=== PATIENT | male | born 1970 | race Caucasian/White ===

== ENCOUNTER 2024-11-11 13:04 | Emergency (ER) | payer MEDICAID ==
[~2024-11-11] VITALS: Ht 172.7 cm; Wt 97.0 kg
[2024-11-11 13:07] VITALS: TEMP 97.8; O2SAT 98
[2024-11-11 14:11] LABS: EOSINOPHILS % 0.1 % (0.0-5.0); HEMATOCRIT. 42.3 % (42.0-52.0); HEMOGLOBIN. 14.3 g/dL (14.0-18.0); LYMPHOCYTES % 30.4 % (20.0-50.0); MEAN CORPUSCULAR HEMOGLOBIN 31.8 pg (28.0-32.0); MEAN CORPUSCULAR HGB CONC 33.8 g/dL (31.0-37.0); MEAN CORPUSCULAR VOLUME 94.1 fL (80.0-94.0); MEAN PLATELET VOLUME 7.5 fl (7.4-10.4); NEUTROPHILS % 59.5 % (40.0-76.0); PLATELET 187 x1000/uL (130-400); RED CELL DISTRIBUTION WIDTH 14.8 % (11.6-14.6); WHITE BLOOD COUNT 6.3 x1000/uL (4.5-11.0)
[2024-11-11 14:14] LABS: CALCIUM 9.3 mg/dL (8.7-10.4); CARBON DIOXIDE 28 mEq/L (21-32); CHLORIDE 103 mEq/L (98-107); POTASSIUM 3.9 mEq/L (3.5-5.1); SODIUM 140 mEq/L (136-145)
[2024-11-11 14:20] LABS: CREATININE 0.8 mg/dL (0.6-1.3); GLUCOSE 97 mg/dL (70-105); UREA NITROGEN BLOOD 7 mg/dL (9-23)
[2024-11-11] MEDS ORDERED: DOXY100C5 MT (14:34)
[2024-11-11] MEDS ORDERED: AMOX1TAB16 MT (14:34)
[2024-11-11 15:15] VITALS: BP 146/96; PULSE 74; RESP 18
[2024-11-11] MEDS: AMOXICILLIN/POTASSIUM CLAVULANATE 875/125MG TAB PO NR (15:15)
[2024-11-11] MEDS: ACETAMINOPHEN WITH CODEINE 300/60MG TABLET PO ONE (15:15)
[2024-11-11] MEDS: DOXYCYCLINE HYCLATE 100MG CAPSULE PO NR (15:16)
== END 2024-11-11 17:04 | disposition home or self-care (01) ==
LOC: ER 13:09
DX: J18.9 Pneumonia, unspecified organism (principal)
CPT/HCPCS: 36415; 71045; 80048; 85025; 99284

== ENCOUNTER 2024-11-17 11:45 | Emergency (ER) | payer MEDICAID ==
[~2024-11-17] VITALS: Ht 175.3 cm; Wt 82.0 kg
[~2024-11-17 11:45] MED LIST: AMOX1TAB16 MT; DOXY100C5 MT
[2024-11-17 11:48] VITALS: O2SAT 98
[2024-11-17 12:05] VITALS: BP 129/95; PULSE 95; RESP 21; TEMP 37.9; O2SAT 96
[2024-11-17] MEDS ORDERED: CEFTRIAXONE 1GM/50ML 50 ML IV SCH (12:15)
[2024-11-17 12:33] LABS: EOSINOPHILS % 0.1 % (0.0-5.0); HEMATOCRIT. 44.8 % (42.0-52.0); HEMOGLOBIN. 15.1 g/dL (14.0-18.0); LYMPHOCYTES % 24.3 % (20.0-50.0); MEAN CORPUSCULAR HEMOGLOBIN 31.8 pg (28.0-32.0); MEAN CORPUSCULAR HGB CONC 33.7 g/dL (31.0-37.0); MEAN CORPUSCULAR VOLUME 94.5 fL (80.0-94.0); MEAN PLATELET VOLUME 7.8 fl (7.4-10.4); MONOCYTES % 9.1 % (2.0-8.0); NEUTROPHILS % 64.5 % (40.0-76.0); PLATELET 185 x1000/uL (130-400); RED BLOOD CELL COUNT 4.74 mill/uL (4.7-6.1); RED CELL DISTRIBUTION WIDTH 15.3 % (11.6-14.6); WHITE BLOOD COUNT 4.9 x1000/uL (4.5-11.0)
[2024-11-17 12:42] LABS: CHLORIDE 105 mEq/L (98-107); POTASSIUM 3.7 mEq/L (3.5-5.1); SODIUM 141 mEq/L (136-145)
[2024-11-17 12:43] LABS: CALCIUM 9.6 mg/dL (8.7-10.4); CARBON DIOXIDE 21 mEq/L (21-32)
[2024-11-17 12:45] LABS: D-DIMER 1.36 mg/L FEU (<0.50); PROTHROMBIN TIME 11.1 sec (9.6-11.0)
[2024-11-17 12:48] LABS: GLUCOSE 92 mg/dL (70-105); UREA NITROGEN BLOOD 9 mg/dL (9-23)
[2024-11-17 12:50] LABS: LACTIC ACID 2.3 mmol/L (0.4-2.0); TROPONIN I HIGH SENSITIVITY 10 ng/L (3.0-53)
[2024-11-17] MEDS: ACETAMINOPHEN 325MG TABLET PO SCH (12:54)
[2024-11-17] MEDS: CEFTRIAXONE 1GM/50ML 50 ML IV NR (12:54)
[2024-11-17] MEDS: SODIUM CHLORIDE 0.9% 1,000 ML IV ONE (12:54)
[2024-11-17] MEDS: AZITHROMYCIN 500MG/250ML 250 ML IV SCH (13:45)
== END 2024-11-17 13:55 | disposition left against medical advice (07) ==
LOC: ER 11:45 → EDBEDREQ 13:38 → ER 13:55
DX: J84.9 Interstitial pulmonary disease, unspecified (principal)
CPT/HCPCS: 99285; 96365; 71045; 96367; 80048; 83880; 83605; 85025; 85379; 85610; 87040; 84484; 36415; 93005; J0456; J0696